=== PATIENT | male | born 1955 | race Caucasian/White ===

== ENCOUNTER 2019-06-01 07:10 | Emergency (ER) | payer BC, OTHER ==
[~2019-06-01] VITALS: Ht 177.8 cm; Wt 190.5 kg
[2019-06-01] MEDS ORDERED: LIDOCAINE 1% W/EPINEPHRINE 20 ML VIAL ONE (07:32)
[2019-06-01] MEDS ORDERED: TETANUS/DIPHTHERIA TOX ADULT 0.5 ML SYR ONE (07:33)
[2019-06-01] MEDS ORDERED: TETANUS/DIPHTHERIA TOX ADULT 0.5 ML SYR IM ONE (08:15)
[2019-06-01] MEDS ORDERED: LIDOCAINE 1% W/EPINEPHRINE 20 ML VIAL INJ ONE (08:15)
== END 2019-06-01 07:48 | disposition home or self-care (01) ==
LOC: FSED 07:10
DX: S81.811A Laceration without foreign body, right lower leg, initial encounter (principal); W26.8XXA Contact with other sharp object(s), not elsewhere classified, initial encounter; Y92.008 Other place in unspecified non-institutional (private) residence as the place of occurrence of the external cause; E66.9 Obesity, unspecified; Z85.828 Personal history of other malignant neoplasm of skin
CPT/HCPCS: 90471; 90714; 99284

== ENCOUNTER 2020-02-29 13:22 | Emergency (ER) | payer BC, OTHER ==
[~2020-02-29] VITALS: Ht 157.5 cm; Wt 210.1 kg
--- NOTE | 2020-02-29 14:05 | Emergency Department Note ---
History of Present Illnes History of Present Illness Chief Complaint: COVID PUI History of Present Illness This is a 64 year old male Chief Complaint Comment Reports that he has had a productive cough for last 2.5 weeks and tested positive for covid 14 days ago and he was tested but still awaiting his results and was retested today. . Historian: Patient Arrival Mode: Car Onset (how long ago): week(s) (1) Location: cough ...chest Quality: no fever Radiation: Denies non-radiation, Denies back, Denies neck, Denies extremity, Denies abdomen, Denies periumbilical, Denies flank, Denies proximal, Denies distal, Denies other Severity: mild Onset quality: gradual Duration (how long): week(s) (1) Timing of current episode: intermittent Progression: waxing and waning Context: Denies recent illness, Denies recent surgery, Denies recent immobilization, Denies recent travel, Denies trauma/injury, Denies new medications, Denies hx of DVT/PE, Denies non-compliance w/ medications, Denies other Relieving factors: none Exacerbating factors: none Associated symptoms: Reports cough; Denies denies other symptoms, Denies confusion, Denies chest pain, Denies diaphoresis, Denies fever/chills, Denies headaches, Denies loss of appetite, Denies malaise, Denies nausea/vomiting, Denies rash, Denies seizure, Denies shortness of breath, Denies syncope, Denies weakness, Denies other Past Medical/Family History Physician Review I have reviewed the patient's past medical and family history. Any updates have been documented here. Past Medical History Recent Fever: No Clinical Suspicion of Infectio: No New/Unexplained Change in Ment: No Past Medical History: None Other Medical History: BORDERLINE DIABETIC SKIN CA OBESE Past Surgical History: None Other Surgery: SKIN CA REMOVAL Social History Smoking Cessation: Never Smoker Alcohol Use: Social Physically hurt or threatened: No Other Last Tetanus: UNKNOWN Review of Systems Review of Systems Constitutional: Reports no symptoms EENTM: Reports no symptoms Cardiovascular: Reports no symptoms Respiratory: Reports as per HPI Gastrointestinal: Reports no symptoms Genitourinary: Reports no symptoms Musculoskeletal: Reports no symptoms Integumentary: Reports no symptoms Neurological: Reports no symptoms Psychological: Reports no symptoms Endocrine: Reports no symptoms Hematological/Lymphatic: Reports no symptoms Physical Exam Related Data Allergies: Coded Allergies: No Known Allergies (Unverified , 07/25/14) Triage Vital Signs Vital Signs Date Time Temp Pulse Resp B/P (MAP) Pulse Ox O2 Delivery O2 Flow Rate FiO2 02/29/20 13:36 99.0 134 24 162/65 95 Room Air Vital signs reviewed: Yes Physical Exam CONSTITUTIONAL Constitutional: Present well-developed, Present well-nourished HENT HENT: Present normocephalic, Present atraumatic, Present oropharynx clear/moist, Present nose normal HENT L/R: Present left ext ear normal, Present right ext ear normal EYES Eyes: Reports PERRL, Reports conjunctivae normal NECK Neck: Present ROM normal PULMONARY Pulmonary: Present effort normal, Present breath sounds normal CARDIOVASCULAR Cardiovascular: Present regular rhythm, Present heart sounds normal, Present capillary refill normal, Present normal rate GASTROINTESTINAL Abdominal: Present soft, Present nontender, Present bowel sounds normal GENITOURINARY Genitourinary: Present exam deferred SKIN Skin: Present warm, Present dry MUSCULOSKELETAL Musculoskeletal: Present ROM normal NEUROLOGICAL Neurological: Present alert, Present oriented x 3, Present no gross motor or sensory deficits PSYCHOLOGICAL Psychological: Present mood/affect normal, Present judgement normal Results Laboratory Lab results reviewed: Yes Imaging Imaging results reviewed: Yes Assessment & Plan Medical Decision Making MDM bronchitis pneumonia Reassessment Reassessment same Assessment & Plan Final Impression: (1) Acute bronchitis (2) Tachycardia Depart Disposition: HOME, SELF-CARE Last Vital Signs Date Time Temp Pulse Resp B/P (MAP) Pulse Ox O2 Delivery O2 Flow Rate FiO2 02/29/20 13:36 99.0 134 24 162/65 95 Room Air Home Meds No Active Prescriptions or Reported Meds JAMIE LYN MD Feb 29, 2020 14:05
[2020-02-29] MEDS ORDERED: ACETAMINOPHEN 325 MG TAB PO ONE (14:15)
[2020-02-29] MEDS ORDERED: ACETAMINOPHEN 325 MG TAB ONE (14:17)
--- NOTE | 2020-02-29 14:30 | Diagnostic Imaging Report ---
EXAMINATION: CXR 1 VEW - HOPD INDICATION: Cough COMPARISON: None FINDINGS: LINES/TUBES:None LUNGS:The lungs are well-inflated. No focal consolidation or pulmonary edema. PLEURA:No pleural effusion or pneumothorax. MEDIASTINUM:The cardiomediastinal silhouette appears normal in size and shape. BONES/SOFT TISSUES:No acute osseous injury. ABDOMEN:No free air under the diaphragm. IMPRESSION: No focal pneumonia or pulmonary edema. Signed by: Divine Gallo MD on 02/29/2020 2:27 PM
[2020-02-29 15:02] VITALS: BP 129/91
--- OUTSIDE RECORDS SUMMARY | 2020-03-03 19:14 | XMS REPORT | Continuity of Care Document ---
Author Author [facility] t Organization [facility] Address [address] [place] [address] Phone Unavailable Care Team Providers Care Library Aide Name Role Phone NO, PCP PCP Unavailable JAMIE LYN Unavailable Payers Payer Name Policy Type Policy Number Effective Date Expiration Date S sol[employer] Ppo [id number] [facility] [employer] Pos [id number] 2017 00:00:00 [facility] Problems Condition Name Condition Details Condition Category Status Onset Date Resolution Date Last Treatment Date Treating Clinician Comments Source Acute bronchitis Problem Active [facility] Tachycardia Problem Active [facility] Allergies, Adverse Reactions, Alerts This patient has no known allergies or adverse reactions. Social History Social Habit Start Date Stop Date Quantity Comments Source Sex Assigned At 1955 00:00:00 1955 00:00:00 Male [facility] Medications This patient has no known medications. Vital Signs Vital Name Observation Time Observation Value Comments Source Weight 2020-02-29 13:36:00 463.13 [lb_av] [facility] BMI (Body Mass Index) 2020-02-29 13:36:00 84.7 kg/m2 [facility] Procedures Procedure Date / Time Performed Performing Clinician Sourmuna e RPR S/N/AX/GEN/TRNK 2.5CM/< 2019-06-01 00:00:00 [facility] Plan of Care Planned Activity Planned Date Details Comments Source Instructions Bronchitis (Acute) - Adult C [facility] Encounters Start Date/Time End Date/Time Encounter Type Admission Type Attendi [facility] Care Department Encounter ID Source 2020-02-29 13:38:00 2020-02-29 15:14:00 Departed Emergency Room 1 JAMIE LYN [facility] [id number] [facility] 2019-06-01 07:10:00 2019-06-01 07:48:00 Departed Emergency Room [facility] [id number] [facility] Results Test Description Test Time Test Comments Results Result Comments Source CXR 1 [facility] 2020-02-29 14:26:00 [facility] [address] [place] [address] Patient Name: MICAH JIMÉNEZ JR MR #: [id number] : 1955 Age/Sex: 64/M Req #: [id number] Adm Physician: Ordered by: JAMIE LYN MD Report #: [id number] Location: [facility] Room/Bed: Procedure: [id number] HOPD/CXR 1 VEW - [facility] Exam Date: 02/29/20 Exam Time: 1405 REPORT STATUS: Signed EXAMINATION: CXR 1 [facility] INDICATION: Cough COMPARISON: None FINDINGS: LINES/TUBES:None LUNGS:The lungs are well-inflated. No focal consolidation or pulmonary edema. PLEURA:No pleural effusion or pneumothorax. MEDI ASTINUM:The cardiomediastinal silhouette appears normal in size and shape. BONES/SOFT TISSUES:No acute osseous injury. ABDOMEN:No free air under the diaphragm. IMPRESSION: No focal pneumonia or pulmonary edema. Signed by: Sophie Still MD on 02/29/2020 2:27 PM Dictated By: SOPHIE STILL MD [id number] Transcribed By: RAYMUNDO on 02/29/201426 COPY TO: JAMIE LYN MD
== END 2020-02-29 15:14 | disposition home or self-care (01) ==
LOC: FSED 13:38
DX: J20.9 Acute bronchitis, unspecified (principal); R05 Cough; R00.0 Tachycardia, unspecified
CPT/HCPCS: 71045; 80053; 85025; 99283